=== PATIENT | female | born 1995 | race Caucasian/White ===

== ENCOUNTER 2024-09-01 17:49 | Inpatient (IN) | payer OTHER ==
[2024-09-01 18:30] LABS: ABSOLUTE IMMATURE GRANULOCYTES 0.02 x10^3/uL (0.0-0.031); BASOPHILS # 0.02 x10^3/uL (0.01-0.08); EOSINOPHIL % 0.7 % (0.7-5.8); EOSINOPHILS # 0.08 x10^3/uL (0.04-0.36); HEMATOCRIT 42.8 % (34.1-44.9); HEMOGLOBIN 14.1 g/dL (11.2-15.7); MCHC 32.9 g/dl (32.2-35.5); MEAN CELL VOLUME 80.1 fl (79.4-94.8); MEAN PLT VOLUME 11.8 fl (9.4-12.3); MONOCYTE # 0.68 x10^3/uL (0.24-0.86); MONOCYTE % 6.1 % (4.7-12.5); PLATELET COUNT 235 x10^3/uL (182-369); RDW 14.6 % (12.1-16.5)
[2024-09-01 18:31] LABS: PH,URINE 5.5 (5.0-8.0); URINE APPEARANCE CLEAR; URINE BILIRUBIN 2+ (NEGATIVE); URINE COLOR DK YELLOW; URINE GLUCOSE (UA) NEGATIVE (NEGATIVE); URINE KETONE TRACE (NEGATIVE); URINE LEUK ESTERASE NEGATIVE (NEGATIVE); URINE NITRITE NEGATIVE (NEGATIVE); URINE PROTEIN TRACE (NEGATIVE)
[2024-09-01] MEDS: SODIUM CHLORIDE 0.9% 1000 ML INFUS.BAG IV ONE ×2 (18:32→22:07)
[2024-09-01] MEDS ORDERED: KETOROLAC TROMETHAMINE 30 MG/1 ML VIAL ONE (18:33)
[2024-09-01] MEDS: KETOROLAC TROMETHAMINE 30 MG/1 ML VIAL IVPUSH ONE (18:37)
[2024-09-01 18:47] LABS: POTASSIUM 3.7 mmol/L (3.5-5.1)
[2024-09-01 18:49] LABS: CALCIUM 9.6 mg/dL (8.5-10.1)
[2024-09-01 18:52] LABS: CREATININE 0.6 mg/dL (0.55-1.3)
[2024-09-01 18:54] LABS: BILIRUBIN,TOTAL 3.5 mg/dL (0.2-1); TOT PROT 8.1 g/dl (6.4-8.2)
[2024-09-01 19:43] LABS: HCV DIAGNOSTIC IN-HOUSE W/RFLX NON-REACTIVE (NONREACTIVE); HIV INTERPRETATION NEGATIVE (NEGATIVE)
[2024-09-01] MEDS ORDERED: morphine SULFATE 4 MG/ML VIAL ONE (21:10)
[2024-09-01] MEDS: morphine CARPU-JECT 4 MG/1 ML DISP.SYRIN IVPUSH ONE (21:19)
[2024-09-01 21:48] LABS: INR 1.13 (0.83-1.09); PROTHROMBIN TIME (PATIENT) 12.3 SEC (9.7-13.0)
[2024-09-01] MEDS ORDERED: CEFTRIAXONE 1 GM/50 ML BAG ONE (21:54)
[2024-09-01] MEDS: CEFTRIAXONE 1,000 MG in DEXTROSE 5%-WATER - 50 ML IVPB ONE (22:07)
[2024-09-01] MEDS: ONDANSETRON 4 MG/2 ML VIAL IVPUSH ONE (22:07)
[2024-09-02] MEDS: D5-1/2NS+20 MEQ KCL - 20 MEQ/1,000 ML INFUS.BAG IV SCH (00:11)
[2024-09-02 00:46] VITALS: BMI 26.2
[2024-09-02] MEDS: LACTATED RINGERS SOLUTION 1,000 ML/1,000 ML INFUS.BAG IV STA (01:05)
[2024-09-02] MEDS ORDERED: ONDANSETRON 4 MG/2 ML VIAL IVPUSH PRN (03:30)
[2024-09-02 08:45] LABS: ABSOLUTE IMMATURE GRANULOCYTES 0.03 x10^3/uL (0.0-0.031); BASOPHILS # 0.01 x10^3/uL (0.01-0.08); EOSINOPHIL % 0.9 % (0.7-5.8); EOSINOPHILS # 0.07 x10^3/uL (0.04-0.36); HEMATOCRIT 35.2 % (34.1-44.9); HEMOGLOBIN 11.6 g/dL (11.2-15.7); MEAN CELL VOLUME 81.7 fl (79.4-94.8); MEAN PLT VOLUME 11.9 fl (9.4-12.3); MONOCYTE # 0.49 x10^3/uL (0.24-0.86); MONOCYTE % 6.3 % (4.7-12.5); PLATELET COUNT 187 x10^3/uL (182-369); RDW 14.7 % (12.1-16.5)
[2024-09-02] MEDS ORDERED: KETOROLAC TROMETHAMINE 15 MG/ML VIAL IVPUSH PRN ×2 (08:47→18:13)
[2024-09-02 09:04] LABS: POTASSIUM 3.7 mmol/L (3.5-5.1)
[2024-09-02 09:07] LABS: CALCIUM 8.5 mg/dL (8.5-10.1)
[2024-09-02 09:08] LABS: ALBUMIN 2.9 g/dl (3.4-5.0); BLOOD UREA NITROGEN 9.5 mg/dL (7-18)
[2024-09-02 09:10] LABS: CREATININE 0.5 mg/dL (0.55-1.3); PHOSPHOROUS 3.9 mg/dL (2.5-4.9)
[2024-09-02 09:12] LABS: BILIRUBIN,TOTAL 1.9 mg/dL (0.2-1)
[2024-09-02 09:13] LABS: TOT PROT 6.1 g/dl (6.4-8.2)
[2024-09-02] MEDS ORDERED: IBUPROFEN 400 MG TABLET (FP) PO PRN (10:56)
[2024-09-02] MEDS ORDERED: oxyCODONE HCL 5 MG TABLET PO PRN ×2 (10:56→18:13)
[2024-09-02] MEDS: CEFTRIAXONE 1 GM in DEXTROSE 5%-WATER - 50 ML IVPB SCH (11:12)
[2024-09-02] MEDS: SODIUM CHLORIDE 1,000 ML IV STA (15:15)
[2024-09-02] MEDS: LACTATED RINGERS SOLUTION 1,000 ML/1,000 ML INFUS.BAG IV SCH (17:22)
[2024-09-03] MEDS: LACTATED RINGERS SOLUTION 1000 ML INFUS.BAG IV ONE (07:00)
[2024-09-03 08:34] LABS: ABSOLUTE IMMATURE GRANULOCYTES 0.02 x10^3/uL (0.0-0.031); BASOPHILS # 0.01 x10^3/uL (0.01-0.08); EOSINOPHIL % 1.5 % (0.7-5.8); HEMATOCRIT 34.2 % (34.1-44.9); MCHC 32.2 g/dl (32.2-35.5); MEAN CELL VOLUME 82.4 fl (79.4-94.8); MEAN PLT VOLUME 11.9 fl (9.4-12.3); MONOCYTE # 0.52 x10^3/uL (0.24-0.86); MONOCYTE % 7.9 % (4.7-12.5); PLATELET COUNT 178 x10^3/uL (182-369); RDW 14.6 % (12.1-16.5)
[2024-09-03 08:56] LABS: POTASSIUM 3.7 mmol/L (3.5-5.1)
[2024-09-03 08:58] LABS: CALCIUM 8.5 mg/dL (8.5-10.1)
[2024-09-03 08:59] LABS: ALBUMIN 2.8 g/dl (3.4-5.0); BLOOD UREA NITROGEN 7.4 mg/dL (7-18)
[2024-09-03 09:03] LABS: CREATININE 0.3 mg/dL (0.55-1.3)
[2024-09-03 09:04] LABS: BILIRUBIN,TOTAL 0.7 mg/dL (0.2-1); TOT PROT 5.8 g/dl (6.4-8.2)
[2024-09-03] MEDS ORDERED: DEXTROSE 50%-WATER 25 GM/50 ML DISP.SYRIN IVPUSH PRN (09:30)
[2024-09-03] MEDS ORDERED: LACTATED RINGERS SOLUTION 1,000 ML/1,000 ML INFUS.BAG IV SCH (09:33)
[2024-09-03] MEDS ORDERED: SODIUM CHLORIDE 1,000 ML IV STA (09:34)
[2024-09-03] MEDS: DEXTROSE 50%-WATER 25 GM/50 ML DISP.SYRIN IVPUSH ONE (09:54)
[2024-09-03] MEDS: SODIUM CHLORIDE 1,000 ML IV STA (10:07)
[2024-09-03] MEDS: SODIUM CHLORIDE 1,000 ML IV SCH (16:37)
[2024-09-04] MEDS ORDERED: PROPOFOL 40 ML ONE (07:28)
[2024-09-04] MEDS ORDERED: MIDAZOLAM HCL 2 MG/2 ML SINGLE DOSE VIAL ONE (07:28)
[2024-09-04] MEDS ORDERED: ROCURONIUM BROMIDE 50 MG/5 ML SYRINGE ONE (07:28)
[2024-09-04] MEDS ORDERED: SODIUM CHLORIDE 1,000 ML IV SCH (07:43)
[2024-09-04] MEDS ORDERED: SODIUM CHLORIDE 1,000 ML IV STA ×2 (07:44→11:11)
[2024-09-04 08:10] LABS: ABSOLUTE IMMATURE GRANULOCYTES 0.03 x10^3/uL (0.0-0.031); BASOPHILS # 0.01 x10^3/uL (0.01-0.08); EOSINOPHIL % 1.9 % (0.7-5.8); EOSINOPHILS # 0.13 x10^3/uL (0.04-0.36); HEMATOCRIT 34.9 % (34.1-44.9); HEMOGLOBIN 11.7 g/dL (11.2-15.7); MCHC 33.5 g/dl (32.2-35.5); MEAN CELL VOLUME 81.5 fl (79.4-94.8); MEAN PLT VOLUME 11.8 fl (9.4-12.3); MONOCYTE # 0.55 x10^3/uL (0.24-0.86); MONOCYTE % 7.8 % (4.7-12.5); PLATELET COUNT 205 x10^3/uL (182-369); RDW 14.7 % (12.1-16.5)
[2024-09-04 08:28] LABS: POTASSIUM 3.7 mmol/L (3.5-5.1)
[2024-09-04 08:33] LABS: ALBUMIN 2.9 g/dl (3.4-5.0); BLOOD UREA NITROGEN 8.3 mg/dL (7-18); CALCIUM 8.7 mg/dL (8.5-10.1)
[2024-09-04 08:36] LABS: CREATININE 0.5 mg/dL (0.55-1.3)
[2024-09-04 08:38] LABS: BILIRUBIN,TOTAL 0.5 mg/dL (0.2-1); TOT PROT 6.2 g/dl (6.4-8.2)
[2024-09-04] MEDS ORDERED: BUPIVACAINE HCL/PF 0.25% (2.5MG/ML) 10 ML VIAL ONE (09:03)
[2024-09-04] MEDS: cefTRIAXone SODIUM 1 GM VIAL IVPB ONE (09:39)
[2024-09-04] MEDS: BUPIVACAINE HCL/PF 0.25% (2.5MG/ML) 10 ML VIAL IJ ONE ×2 (09:43)
[2024-09-04] MEDS ORDERED: KETOROLAC TROMETHAMINE 30 MG/1 ML VIAL ONE (09:49)
[2024-09-04] MEDS ORDERED: ONDANSETRON 4 MG/2 ML VIAL ONE (09:49)
[2024-09-04] MEDS ORDERED: DEXAMETHASONE SOD PHOSPHATE 4 MG/1 ML VIAL ONE (09:49)
[2024-09-04] MEDS ORDERED: SUGAMMADEX SODIUM 200 MG/2 ML VIAL ONE (10:02)
[2024-09-04] MEDS ORDERED: ONDANSETRON 4 MG/2 ML VIAL IVPUSH PRN ×3 (10:23→11:11)
[2024-09-04] MEDS ORDERED: morphine CARPU-JECT 2 MG/1 ML DISP.SYRIN IVPUSH PRN (10:23)
[2024-09-04] MEDS ORDERED: DEXTROSE 50%-WATER 25 GM/50 ML DISP.SYRIN IVPUSH PRN (11:11)
[2024-09-04 11:55] VITALS: RESP 18
[2024-09-04] MEDS: SODIUM CHLORIDE 1,000 ML IV SCH (13:32)
[2024-09-04] MEDS: oxyCODONE HCL 5 MG TABLET PO PRN (13:32)
[2024-09-04] MEDS: KETOROLAC TROMETHAMINE 15 MG/ML VIAL IVPUSH PRN (17:01)
[2024-09-04 17:37] VITALS: BP 100/67; PULSE 56; TEMP 97.8
[2024-09-04] MEDS: ACETAMINOPHEN 500 MG TABLET (FP) PO ONE (17:53)
== END 2024-09-04 19:09 | disposition home or self-care (01) | DRG 263 ==
LOC: JER 17:49 → JERBED 21:13 → J6S 23:36
PROVIDERS: ADMIT Internal Medicine; ATTEND Internal Medicine
PROC: 0FT44ZZ Resection of Gallbladder, Percutaneous Endoscopic Approach (ICD-10-PCS; principal; 2024-09-04 09:41)
DX: K80.00 Calculus of gallbladder with acute cholecystitis without obstruction (principal); K85.10 Biliary acute pancreatitis without necrosis or infection; E80.6 Other disorders of bilirubin metabolism; R10.11 Right upper quadrant pain; R11.2 Nausea with vomiting, unspecified; R19.7 Diarrhea, unspecified
CPT/HCPCS: 36415; 74176-TC; 74181-TC; 76705-TC; 80053; 80061; 81003; 82248; 82962; 83605; 83690; 83735; 84100; 84703; 85025; 85610; 85730; 86803; 86850; 86900; 86901; 87389; 88304-TC; 94010; 94760; 99285-25